=== PATIENT | female | born 1990 | race Caucasian/White ===

== ENCOUNTER → 2021-02-26 | Outpatient (CLI) | payer OTHER ==
[2021-02-26 17:50] LABS: HCG, SERUM QUALITATIVE NEGATIVE (NEGATIVE)
[2021-02-26 18:10] LABS: FREE T4 0.93 NG/DL (0.76-1.46); GLUCOSE, FASTING 83 MG/DL (70-100); PROLACTIN 10.3 NG/ML
[2021-02-26 18:19] LABS: HEMOGLOBIN A1c 5.1 %
[2021-03-07 14:12] LABS: 17 HYDROXY PROGESTERONE 30 ng/dL (.); INSULIN FREE 12 uU/mL (.); INSULIN TOTAL2 12 uU/mL (.); TESTOSTERONE FREE (DIRECT) 7.1 pg/mL (0.0-4.2)
== END ==
LOC: M PLALAB 16:07
PROVIDERS: ATTEND Advanced Practice Midwife
DX: N92.6 Irregular menstruation, unspecified (principal)
CPT/HCPCS: 36415; 82627; 82947; 83036; 83498; 83525; 83527; 84146; 84402; 84403; 84439; 84443; 84703; G0463

== ENCOUNTER → 2021-04-01 | Outpatient (CLI) | payer OTHER ==
[2021-04-01 16:38] LABS: FOLLICLE STIMULATING HORMONE 6.6 mIU/mL; LUTEINIZING HORMONE 3.1 mIU/mL
== END ==
LOC: M LAB 15:10
PROVIDERS: ATTEND Advanced Practice Midwife
DX: Z31.9 Encounter for procreative management, unspecified (principal)

== ENCOUNTER → 2021-04-19 | Outpatient (CLI) | payer OTHER ==
[2021-04-21 12:54] LABS: ESTRADIOL 79.3 PG/ML; PROGESTERONE 0.31 NG/ML
== END ==
LOC: M LAB 10:44
PROVIDERS: ATTEND Advanced Practice Midwife
DX: Z31.9 Encounter for procreative management, unspecified (principal)

== ENCOUNTER → 2021-07-10 | Outpatient (CLI) | payer OTHER ==
[2021-07-10 16:00] LABS: APPEARANCE, URINE TURBID (CLEAR); BACTERIA, URINE AUTO NEGATIVE (NEGATIVE); BILIRUBIN, URINE AUTO NEGATIVE (NEGATIVE); BLOOD, URINE BLOOD 3+ (NEGATIVE); GLUCOSE, URINE (UA) AUTO NEGATIVE (NEGATIVE); KETONE, URINE AUTO NEGATIVE (NEGATIVE); LEUKOCYTE ESTERASE, URINE AUTO TRACE (NEGATIVE); NITRITE, URINE AUTO NEGATIVE (NEGATIVE); PROTEIN, URINE AUTO 2+ mg/dL (NEGATIVE); RBC, URINE AUTO TNTC /HPF (0-3); SPECIFIC GRAVITY URINE AUTO 1.015 (1.002-1.035); SQUAMOUS EPITHELIAL CELL UR AU 0 /HPF (0-6); UROBILINOGEN, URINE AUTO 0.2 mg/dL (0.0-2.0); WBC, URINE AUTO TNTC /HPF (0-3)
[2021-07-10 19:30] LABS: COLOR, URINE RED (YELLOW)
== END ==
LOC: M PLALAB 10:49
PROVIDERS: ATTEND Advanced Practice Midwife
DX: R35.0 Frequency of micturition (principal)

== ENCOUNTER → 2022-01-22 | Outpatient (CLI) | payer OTHER | LOC: M PLALAB 12:23 | PROVIDERS: ATTEND Obstetrics & Gynecology | DX: Z34.91 Encounter for supervision of normal pregnancy, unspecified, first trimester (principal); Z3A.01 Less than 8 weeks gestation of pregnancy ==

== ENCOUNTER → 2022-01-29 | Outpatient (CLI) | payer OTHER | LOC: M PLALAB 08:29 | PROVIDERS: ATTEND Obstetrics & Gynecology | DX: Z34.91 Encounter for supervision of normal pregnancy, unspecified, first trimester (principal); Z3A.01 Less than 8 weeks gestation of pregnancy ==

== ENCOUNTER → 2022-03-19 | Outpatient (REF) | payer OTHER ==
[2022-03-19 21:48] LABS: GC DNA AMPLIFICATION NEGATIVE (NEGATIVE)
== END ==
LOC: M PLALAB 15:03
PROVIDERS: ATTEND Advanced Practice Midwife
DX: Z12.4 Encounter for screening for malignant neoplasm of cervix (principal); Z11.3 Encounter for screening for infections with a predominantly sexual mode of transmission
CPT/HCPCS: 87661; 87810; 87850; G0123